=== PATIENT | female | born 1955 | race Two or more races ===

== ENCOUNTER 2025-09-16 07:00 | Day surgery (SDC) | payer MEDICARE, MEDICAID, SELFPAY ==
[2025-09-15 10:35] VITALS: BMI 28.7
--- NOTE | 2025-09-15 11:05 | EKG_ITS ---
[facility] Test Date: 2025-09-15 Pat Name: WYATT CHRISTINE Department: Room: - Gender: Female [employer]st: CARLY : 1955 Requested By: Marcus Yusuf Order Number: [id number] Reading MD: Marcus Yusuf Measurements Intervals [place] Rate: 74 P: 70 PA: 168 QRS: 70 QRSD: 85 T: 59 QT: 407 QTc: 452 Interpretive Statements SINUS RHYTHM Compared to ECG 07/07/2023 14:28:39 No significant changes /[id number]/[email or web address]/[id number].pdf
[2025-09-15 12:20] LABS: Basophils # (Auto) 0.0 Thou/mm3 (0.0-0.2); Basophils % (Auto) 0 % (0-2.5); Eosinophils # (Auto) 0.1 Thou/mm3 (0.0-0.5); Eosinophils % (Auto) 2 % (0-10); Hematocrit 33.0 % (36.0-46.0); Hemoglobin 10.9 g/dL (12.0-16.0); Immature Granulocytes Auto 0.01 Thou/mm3 (0.00-0.00); Lymphocytes # (Auto) 1.9 Thou/mm3 (1.0-4.8); Lymphocytes % (Auto) 30 % (10-50); Mean Corpuscular HGB Conc 33.0 g/dl (31.0-37.0); Mean Corpuscular Hemoglobin 26.9 pg (25.0-35.0); Mean Corpuscular Volume 82 fL (80-100); Monocytes # (Auto) 0.5 Thou/mm3 (0.0-0.8); Monocytes % (Auto) 7 % (0-12); Neutrophils # (Auto) 3.9 Thou/mm3 (1.8-7.7); Neutrophils % (Auto) 61 % (37-80); Nucleated Red Blood Cell # 0.00 Thou/mm3 (0.00-0.00); Nucleated Red Blood Cell % 0 /100 WBC (0); Platelet Count 265 Thou/mm3 (140-440); RDW Standard Deviation 41.6 fL (36.4-46.3); Red Blood Count 4.05 Miln/mm3 (4.00-5.20); White Blood Count 6.5 Thou/mm3 (3.6-11.0)
[2025-09-15 12:24] LABS: INR 1.0 (0.9-1.3); Partial Thromboplastin Time 32.5 Seconds (22.0-36.0); Prothrombin Time 10.5 Seconds (9.0-12.2)
[2025-09-15 12:39] LABS: Alanine Aminotransferase 14 U/L (10-49); Albumin, Serum 4.7 gm/dL (3.4-4.8); Albumin/Globulin Ratio 2.1 (1.2-2.2); Alkaline Phosphatase 92 U/L (46-116); Anion Gap 11 (7-16); Aspartate Amino Transferase 20 U/L (0-34); BUN/Creatinine Ratio 19 Ratio (12-20); Bilirubin,Total 0.4 mg/dL (0.3-1.2); Blood Urea Nitrogen 15 mg/dL (9-23); Calcium 9.0 mg/dL (8.3-10.6); Calcium (Corrected) 9.0 mg/dL (8.5-10.1); Carbon Dioxide 24.5 mMol/L (20.0-31.0); Chloride 108 mMol/L (98-107); Creatinine (Component) 0.8 mg/dL (0.6-1.3); Estimated Creatinine Clearance 57.3 mL/min (>60); Globulin 2.2 gm/dL (2.3-3.5); Glucose 105 mg/dL (74-106); Osmolality,Calculated 285 (275-295); Potassium 4.2 mMol/L (3.4-5.1); Sodium 143 mMol/L (136-145); Total Protein 6.9 gm/dL (5.7-8.2); eGFR > 60 See Note
[2025-09-16] VITALS (12 sets, daily range): BP systolic 109–142; BP diastolic 58–86; PULSE 72–92; RESP 13–20; TEMP 36.1–36.6; O2SAT 95–100; BMI 28.8
--- NOTE | 2025-09-16 11:25 | SUR.PHASEI ---
Pt. arrived to recovery via gurney, eyes closed, oral airway in place, lung sounds clear, equal expansion angélica., rhonchi noted on inspiration, pt. receiving 8 liters 02 via oxymask, dressing to left groin, adaptic, 4x4 fluffs and tape intact, no active bleeding or redness noted, report received from Dr. Monroy, Maame SRNA and Martir PAZ.
--- NOTE | 2025-09-16 11:35 | ESOP_ITS ---
Date of Procedure 09/16/25 Pre Op Diagnosis Symptomatic left inguinal hernia Post Op Diagnosis Same, direct and indirect and type Procedure Repair of the left inguinal hernia Findings Patient is found to have large weakness through which herniation occurred to the internal ring. Patient also had weakness in the hasselbach's triangle and therefore required reconstruction of the inguinal floor Procedure Description After the patient was brought to the operating room LMA anesthesia was given. Then the lower abdomen was prepped with ChloraPrep solution and draped in a sterile manner. Timeout was performed. Then I made a standard left groin incision for about 5 to 6 cm and incised the Luis M's fascia. I injected some local anesthesia before I made the incision. The external oblique was reached and it was incised. Then the hernia became very obvious and was bulging as a big defect through the anterior floor of the inguinal canal but I was able to push it into the internal ring. Internal ring was patulous. After the round ligament left suture ligating with 2-0 chromic I used a 4 x 1 inch Marlex mesh and attached it medially to the pubic tubercle and superiorly to the internal oblique and inferiorly to the shelving edge of the inguinal ligament. This mesh reduced the entire hernia including the direct component. I used a 2- 0 Prolene in a running fashion to accomplish this. The mesh was then tucked underneath the external oblique. The external oblique was closed with 2-0 Vicryl and the subtenons tissues with Luis M's fascia was 4-0 Monocryl and dressing was applied with Adaptic and 4 x 4 gauze. Patient tolerated procedure. Closed with 3-0 chromic. Skin was closed with Anesthesia other Pathology / specimen None Estimated Blood Loss 20 Surgeon Carmelo Cobb MD Surgical Staff Operation Date: 09/16/25 09:30 Case Staff Anesthesiologist: Kali Monroy RN First Assistant: Leatha Palacio
--- NOTE | 2025-09-16 11:38 | SUR.PHASEI ---
Pt. AAOx3, sitting up tolerating oral fluids.
[2025-09-16] MEDS: ONDANSETRON INJ 2 MG/ML INJ 2 ML 4 MG IVP (12:04)
[2025-09-16] MEDS: fentaNYL CIT INJ 50 mCg/ML AMP 2ML 25 MCG IVP (12:06)
--- NOTE | 2025-09-16 14:10 | SUR.PHASEII ---
pt awake and alert, breathing unlabored on room air. v/s stable. pt dressing to lower abd cdi. pt able to ambulate to wheelchair with steady gait. d/c instructions given with son and in room, all questions answered. pt d/c via wheelchair with all bleongings.
== END 2025-09-16 14:10 | disposition home or self-care (01) ==
PROVIDERS: PCP Family Medicine; Referring Provider Surgery; Visit Provider Surgery
PROC: (CPT 49505; principal; 2025-09-16 09:15)
DX: K40.90 Unilateral inguinal hernia, without obstruction or gangrene, not specified as recurrent (principal); Z01.810 Encounter for preprocedural cardiovascular examination; E11.9 Type 2 diabetes mellitus without complications
CPT/HCPCS: 49505; 36415; 80053; 85025; 85610; 85730; 93005; A4649; C1781; J0131; J0690; J1100; J1885; J2371; J2405; J2704; J3010; J3490